=== PATIENT | female | born 1980 | race Caucasian/White ===

== ENCOUNTER 2021-02-28 09:55 | Emergency (ER) | payer MEDICAID ==
[~2021-02-28] VITALS: Ht 165.2 cm; Wt 70.5 kg
[~2021-02-28 09:55] MED LIST: COGENTIN .0.5 MG/TAB PO; HALDOL 2MG T2 MG/TAB PO; NO HOME MEDICATIONS; NORCO 325 MG-7.1 TAB PO; PARKINSONS MED; PAXIL40 MG PO; PROZAC 20MG20 MG PO; RISPERDAL 1M1 MG/TAB PO; VALIUM 5MG T5 MG/TAB PO; WELLBUTRIN SR100 M1 PO; [UNRECOGNIZED DRUG - OTHER] PO; [UNRECOGNIZED DRUG - OTHER] TP; anxiety medication
[2021-02-28 10:01] VITALS: BP 110/77; TEMP 97.7
[2021-02-28 10:38] VITALS: PULSE 105
== END 2021-02-28 10:38 | disposition home or self-care (01) ==
LOC: COL.ER 09:55
DX: S61.216A Laceration without foreign body of right little finger without damage to nail, initial encounter (principal); Z88.0 Allergy status to penicillin; W26.8XXA Contact with other sharp object(s), not elsewhere classified, initial encounter

== ENCOUNTER 2022-04-08 08:04 | Day surgery (SDC) | payer MEDICAID ==
[~2022-04-08] VITALS: Ht 165.1 cm; Wt 78.1 kg
[2022-04-08] MEDS ORDERED: BUSPAR5 MG PO (08:34)
[2022-04-08] MEDS ORDERED: PRILOSEC 20MG20 MG PO (08:35)
[2022-04-08] MEDS ORDERED: COGENTIN .0.5 MG/TAB PO (08:35)
[2022-04-08] MEDS ORDERED: VRAYLAR1.5 MG PO (08:36)
[2022-04-08 09:45] VITALS: BP 93/69; PULSE 114; TEMP 97.5
[2022-04-08 10:00] VITALS: BP 96/75; PULSE 108
[2022-04-08 10:15] VITALS: BP 103/80; PULSE 107
[2022-04-08 10:30] VITALS: BP 100/67; PULSE 108
--- NOTE | 2022-04-08 10:53 | NUR ---
0945 Pt returns from endo procedure via cart and RN assist to [facility]. Pt ambulates from cart to recliner with RN assist. Monitors on and alarms set. Call light within reach. Report received from ABDI Avila. Pt alert and oriented. Pt requests muffin and juice. Pt denies any pain or nausea. 0955 Pt taking food and drink well. No complications noted. 1040 Discharge instructions given to pt. All questions answered to her satisfaction. Handed to pt are a thank you card and discharge information. Waiting on pt's friend to arrive. 1053 Pt transferred out of the hospital via wheelchair and this RN assist, to private vehicle driven by pt's friend.
[2022-04-08 12:42] VITALS: BP 95/22; PULSE 120; TEMP 97.8
== END 2022-04-08 10:53 | disposition home or self-care (01) ==
LOC: SDCO 08:04
DX: K63.5 Polyp of colon (principal); K64.0 First degree hemorrhoids; Z80.0 Family history of malignant neoplasm of digestive organs; Z79.899 Other long term (current) drug therapy; F17.210 Nicotine dependence, cigarettes, uncomplicated
CPT/HCPCS: J2704; J3010; J7030

== ENCOUNTER 2022-04-22 18:27 | Emergency (ER) | payer MEDICAID ==
[~2022-04-22] VITALS: Ht 165.1 cm; Wt 77.7 kg
[~2022-04-22 18:27] MED LIST changes: +BUSPAR5 MG PO; +PRILOSEC 20MG20 MG PO; +VRAYLAR1.5 MG PO
[2022-04-22 18:29] VITALS: BP 119/87; TEMP 98.5
[2022-04-22] MEDS ORDERED: DOXYCYCLINE 10100 MG PO (19:03)
[2022-04-22 19:10] VITALS: PULSE 118
== END 2022-04-22 19:10 | disposition home or self-care (01) ==
LOC: COL.ER 18:27
DX: N76.4 Abscess of vulva (principal); F17.210 Nicotine dependence, cigarettes, uncomplicated; Z88.0 Allergy status to penicillin; Z28.310 Unvaccinated for COVID-19